=== PATIENT | male | born 1990 | race African-American/Black ===

== ENCOUNTER 2018-08-07 09:07 | Emergency (ER) | payer MEDICARE, MEDICAID ==
[~2018-08-07] VITALS: Ht 193 cm; Wt 82.0 kg
[2018-08-07] MEDS ORDERED: KEPP500 PO (09:15)
[2018-08-07] MEDS ORDERED: HYDROCODONE/ACETAMINOPHEN 5/325MG TABLET PO ONE (10:00)
[2018-08-07 11:01] VITALS: BP 135/72
== END 2018-08-07 11:03 | disposition home or self-care (01) ==
LOC: ER 09:07
DX: S09.8XXA Other specified injuries of head, initial encounter (principal); S10.93XA Contusion of unspecified part of neck, initial encounter; G40.909 Epilepsy, unspecified, not intractable, without status epilepticus; V43.52XA Car driver injured in collision with other type car in traffic accident, initial encounter; Y93.89 Activity, other specified; Y92.488 Other paved roadways as the place of occurrence of the external cause
CPT/HCPCS: 72050; 99283